=== PATIENT | male | born 1995 | race Caucasian/White ===

== ENCOUNTER 2017-05-16 22:22 | Emergency (ER) | payer OTHER ==
[2017-05-16 22:28] VITALS: BP 135/88; PULSE 80; RESP 18; TEMP 97.8; O2SAT 99
--- NOTE | 2017-05-16 22:57 | ED PDOC ---
Lower Extremity Pain/Injury Time Seen by Provider: 05/16/17 22:31 Chief Complaint (Nursing): Lower Extremity Problem/Injury Chief Complaint (Provider): Leg Pain History Per: Patient Additional Complaint(s): Patient is a 22 yo male, no PMH, was playing indoor soccer, turned and felt "Pop " in left knee. Patient arrives with ice on knee. Pain feels interior, 5/10. No previous injury to affected extremity. Pt able to ambulate with limp Past Medical History Reviewed: Nursing Documentation, Vital Signs Vital Signs: Last Vital Signs Temp 97.8 F 05/16/17 22:25 Pulse 80 05/16/17 22:25 Resp 18 05/16/17 22:25 BP 135/88 05/16/17 22:25 Pulse Ox 99 05/16/17 22:25 - Medical History PMH: No Chronic Diseases - Surgical History Surgical History: No Surg Hx - Family History Family History: States: No Known Family Hx - Living Arrangements Living Arrangements: With Family - Social History Current smoker - smoking cessation education provided: No Alcohol: Social Drugs: Denies - Home Medications Home Medications: Ambulatory Orders Medication Instructions Recorded Ibuprofen [Motrin] 600 mg PO Q6 #20 tab 05/17/17 - Allergies Allergies/Adverse Reactions: Allergies Allergy/AdvReac Type Severity Reaction Status Date / Time No Known Allergies Allergy Verified 05/16/17 22:24 Review of Systems ROS Statement: Except As Marked, All Systems Reviewed And Found Negative Musculoskeletal: Positive for: Leg Pain Physical Exam - Reviewed Nursing Documentation Reviewed: Yes Vital Signs Reviewed: Yes - Physical Exam Appears: Positive for: Well, Non-toxic, No Acute Distress Head Exam: Positive for: ATRAUMATIC, NORMAL INSPECTION, NORMOCEPHALIC Skin: Positive for: Normal Color, Warm, DRY Eye Exam: Positive for: EOMI, Normal appearance, PERRL ENT: Positive for: Normal ENT Inspection Neck: Positive for: Normal, Painless ROM Cardiovascular/Chest: Positive for: Regular Rate, Rhythm Respiratory: Positive for: CNT, Normal Breath Sounds Gastrointestinal/Abdominal: Positive for: Normal Exam, Bowel Sounds, Soft Back: Positive for: Normal Inspection Extremity: Positive for: Normal ROM, Tenderness (medical aspect of knee). Negative for: Deformity, Swelling Neurologic/Psych: Positive for: Alert, Oriented - ECG O2 Sat by Pulse Oximetry: 99 Medical Decision Making Medical Decision Making: Medicated with Motrin 600 mg XR IMPRESSION: Chip or avulsion fracture medial epicondyle left femur. Moderate suprasellar bursa effusion. Follow-up MRI is advised further characterization. Pt offered knee immobilizer and declined. crutches administered and RICE therapy advised, along with ortho follow up Disposition - Clinical Impression Clinical Impression: Knee pain - Patient ED Disposition Is Patient to be Admitted: No - Disposition Referrals: Astrid Everett MD [Staff Provider] - Disposition: Routine/Home Disposition Time: 23:00 Condition: STABLE Prescriptions: Ibuprofen [Motrin] 600 mg PO Q6 #20 tab Instructions: Knee Pain (ED) Forms: [facility] (Citizen [place]) - POA Present On Arrival: Falls Or Trauma
--- NOTE | 2017-05-17 09:56 | RAD ---
PROCEDURE: Left Knee Radiographs. HISTORY: Pain. COMPARISON: None. FINDINGS: BONES: Questionable chip or avulsion fracture related to the medial condyles left femur for which follow-up or MRI is advised as this may reflect an underlying soft tissue injury. JOINTS: Normal. No osteoarthritis. JOINT EFFUSION: Moderate suprapatellar bursa effusion. OTHER FINDINGS: None. IMPRESSION: Chip or avulsion fracture medial epicondyle left femur. Moderate suprasellar bursa effusion. Follow-up MRI is advised further characterization.
== END 2017-05-17 00:59 | disposition home or self-care (01) ==
LOC: H.ER 22:22
DX: S83.92XA Sprain of unspecified site of left knee, initial encounter (principal); X50.9XXA Other and unspecified overexertion or strenuous movements or postures, initial encounter; Y93.66 Activity, soccer